=== PATIENT | female | born 1980 | race Native Hawaiian/Other Pacific Islander ===

== ENCOUNTER → 2018-01-30 12:57 | Outpatient (CLI) | payer SELFPAY ==
--- NOTE | 2018-01-30 13:10 | US_ITS ---
US transvaginal HISTORY: ITS.REASON: HEAVY BLEEDING ORDERING PHYSICIAN: Oliverio Cheung MD PATIENT AGE: 38 years Comparison: None FINDINGS: The uterus is 9 x 5 x 6.6 cm with a combined endometrial thickness 1.4 cm. No endometrial mass evident. The left ovary measures 4.3 x 2.9 cm and contains multiple small follicles as well as a 2 cm cyst with a peripheral septation. Blood flow is present. The right ovary measures 3 x 2 cm and contains small follicles. Blood flow is present No cul-de-sac fluid evident. IMPRESSION: 1. Thickened endometrium. 2. Bilateral ovarian follicles including a 2 cm left ovarian cyst
== END ==
PROVIDERS: PCP Emergency Medicine; Visit Provider Emergency Medicine
DX: N92.0 Excessive and frequent menstruation with regular cycle (principal)
CPT/HCPCS: 76830

== ENCOUNTER 2020-02-14 13:06 | Emergency (ER) | payer MEDICAID, SELFPAY ==
[2020-02-14 13:34] VITALS: BP 180/70; PULSE 73; RESP 20; TEMP 36.7; O2SAT 98; BMI 31.1
[2020-02-14 13:48] LABS: Apearance,Urine Clear (Clear); Bilirubin,Urine Negative (Negative); Blood, Urine Negative (Negative); Color,Urine Yellow (Yellow); Glucose,Urine (UA) Negative (Negative); Ketones,Urine Negative (Negative); PH,Urine 6.5 (5.0-8.5); Protein,Urine Negative (Negative); Specific Gravity, Urine 1.015 (1.005-1.030); UTC Leukocyte Esterase,Urine Negative (Negative); UTC Nitrate,Urine Negative (Negative); Urobilinogen,Urine 0.2 EU/dl (0.2)
--- NOTE | 2020-02-14 13:59 | HMH.EDUTC ---
[facility] [place] Clinical Impression: Dysuria UTI (urinary tract infection) Qualifiers: Urinary tract infection type: site unspecified Hematuria presence: without hematuria Qualified Code(s): N39.0 - Urinary tract infection, site not specified Disposition: Home, Self-Care Condition on Discharge: Good Instructions: Urinary Tract Infection Additional Instructions: Drink plenty of fluids. Take tylenol or ibuprofen for pain or fever. Take the medications as directed. Follow up with your regular doctor. GO TO THE ER FOR ANY WORSENING SYMPTOMS The pyridium will make your urine turn orange, this is an expected side effect. It will stain your clothes if it comes into contact with them. Prescriptions: Sulfamethoxazole/Trimethoprim [Bactrim DS tablet] 1 each PO BID 7 Days #14 tab Transmission Status: Received by [facility] #[id number] Fluconazole [Diflucan 150mg tab] 150 mg PO ONCE #1 tab Transmission Status: Received by [facility] #[id number] Nystatin [Nystatin Cr 100,000 Units/GM 30GM] 1 applicatio TP TID 14 Days #1 tube Transmission Status: Received by [facility] #[id number] Phenazopyridine HCl [Pyridium 200mg Tablet] 200 pow PO TID #6 tab Transmission Status: Received by [facility] #[id number] Referrals: Oliverio Cheung MD [Primary Care Provider] - Forms: Work/School Release Time of Disposition: 14:04 Medical Decision Making - Medical Records Medical records reviewed: No: I reviewed the patient's medical records. - Husam Inquiry Pt receiving controlled substance: No Vital Signs: 02/14/20 13:34 02/14/20 14:05 Temperature 98.0 F 98.0 F Temperature Source Oral Pulse Rate 73 Pulse Rate [Right Brachial] 73 Respiratory Rate 20 20 Blood Pressure 180/70 H Blood Pressure [Right Arm] 180/70 H Blood Pressure Mean [Right Arm] 106 Blood Pressure Source [Right Arm] Automatic Cuff Blood Pressure Position [Right Arm] Sitting 02 Sat by Pulse Oximetry 98 Oxygen Delivery Method Room Air - Lab Data Lab results reviewed: Yes: I reviewed the patient's lab results. Lab Results 02/14/20 13:41: Urine Color Yellow, Urine Appearance Clear, Urine pH 6.5, Ur Specific [place] 1.015, Urine Protein Negative, Urine Glucose (UA) Negative, Urine Ketones Negative, Urine Blood Negative, Urine Nitrate Negative, Urine Bilirubin Negative, Urine Urobilinogen 0.2, Ur Leukocyte Esterase Negative [facility] [place] - General Stated complaint: Possible UTI Time Seen by Provider: 02/14/20 13:40 Mode of Arrival: Ambulatory Source of Information: Patient Limitations: No Limitations Description of Symptoms (Recalled from Triage Doc. by RN): PATIENT C/O BURNING WITH URINATION, ITCHING, AND RIGHT LOWER/FLANK PAIN THAT RADIATES TO FRONT X 1 WEEK HEENT Symptoms (Recalled from RN notes): No Resp Symptoms (Recalled from RN notes): No Skin Symptoms (Recalled from RN notes): No MS Symptoms (Recalled from RN notes): No Functional Status (Recalled from RN notes): WNL - History of Present Illness Provider Complaint: She c/o low back pain, burning while urinating and feeling bad for the past 3 days. She has a history of kind of frequent uti's, but she has not had one in the past 2 years. She is taking cranberry tablets, but she states that she thinks this infection needs some antibiotics to treat it. - Related Data Previous Rx's Medication Instructions Recorded Fluconazole [Diflucan 150mg tab] 150 mg PO ONCE #1 tab 02/14/20 Nystatin [Nystatin Cr 100,000 1 applicatio TP TID 14 Days #1 tube 02/14/20 Units/GM 30GM] Phenazopyridine HCl [Pyridium 200 pow PO TID #6 tab 02/14/20 200mg Tablet] Sulfamethoxazole/Trimethoprim 1 each PO BID 7 Days #14 tab 02/14/20 [Bactrim DS tablet] Allergies Allergy/AdvReac Type Severity Reaction Status Date / Time No Known Allergies Allergy Verified 02/14/20 13:39 - Worker's Comp Is this a Worker's Comp case?: No [facility] History - Hepatiti
[2020-02-14 14:05] VITALS: BP 180/70; PULSE 73; RESP 20; TEMP 36.7; O2SAT 98
== END 2020-02-14 14:09 | disposition home or self-care (01) ==
PROVIDERS: Emergency Provider Nurse Practitioner Family; PCP Emergency Medicine
DX: N39.0 Urinary tract infection, site not specified (principal)
CPT/HCPCS: 81003; 99201

== ENCOUNTER → 2020-05-05 12:42 | Outpatient (CLI) | payer OTHER, SELFPAY ==
--- NOTE | 2020-05-05 13:05 | CA_ITS ---
APPROVED REPORT EXAM: Comprehensive 2D, Doppler, and color-flow Echocardiogram Rug Dyer: Lissy Al CRT Ht: 5 ft 1 in Wt: 172lbs BSA: 1.77 BP: 120/74 mmHg Indications: Chest Pain, Shortness of Breath, Hypertension/HDD 2D Dimensions LVOT 1.74 cm (M/F) 1.5-2.5 M-Mode Dimensions RVDd 2.59 cm (0.9-2.6) LVDd 4.78 cm (3.5-5.7) LVDs 3.22 cm (3.5-5.7) IVSd 0.94 cm (0.6-1.1) PWd 0.66 cm (0.6-1.1) EF (Teich) 60.90% FS 32.60% EDV (Teich) 106.50 mL ESV (Teich) 41.60 mL LV Diastology E/A Ratio 1.40 Mitral Valve MV A Velocity 70.00 (40-130 cm/s) Left Ventricle Left atrium is mildly enlarged, left ventricle is normal size, mild concentric left ventricular hypertrophy, visually estimated ejection fraction 55% with no regional wall motion abnormality, grade 1 diastolic dysfunction seen with tissue Doppler evidence of raise left atrial pressure. Right Ventricle Right atrium and right ventricle are mildly enlarged with normal contractility. Aortic Valve Aortic valve is thickened and calcified leaflet continue to display good mobility, there is no aortic stenosis or aortic insufficiency. Mitral Valve Mitral valve leaflets are minimally thickened, there is mild mitral regurgitation. Tricuspid Valve Tricuspid valve is grossly normal, there is mild tricuspid regurgitation, tricuspid regurgitation jet velocity is inadequate for calculation of the right ventricular systolic pressure. Pulmonic Valve Pulmonic valve is poorly visualized. Great Vessels Aortic root is normal size. Pericardium No significant pericardial effusion noted. Conclusion 1. Mild biatrial enlargement, normal left ventricular size, mild concentric left ventricular hypertrophy, visually estimated ejection fraction 55% with no regional wall motion abnormality, grade 1 diastolic dysfunction seen with tissue Doppler evidence of raise left atrial pressure. 2. Thickened and calcified aortic valve without aortic stenosis or aortic insufficiency. 3. Mildly enlarged right ventricle with normal contractility. 4. No significant pericardial effusion noted. Electronically signed by : Jose D Aly, 05/05/2020 20:34:16
--- NOTE | 2020-05-05 13:39 | US_ITS ---
PROCEDURE: US TRANSVAGINAL CLINICAL INDICATION: PELVIC AND PERINEAL PAIN COMPARISON: US TRANVAG US transvaginal from 01/30/2018 FINDINGS: UTERUS: 9cm x 7cmx 5cm with a combined endometrial thickness of 11.6mm LEFT OVARY: [id number] with a volume of 16.9ml. RIGHT OVARY: [id number] with a volume of 9.4ml. There are nabothian cysts present. Endometrial thickness is upper normal at 12 mm. In the anterior aspect of the uterus there is a 3 x 1.9 cm area of heterogeneous echogenicity consistent with a uterine fibroid in the body of the uterus anteriorly and to the right. There are multiple ovarian follicles with no dominant cyst. There is trace amount of fluid in the cul-de-sac. IMPRESSION: 1. Bulky uterus with uterine fibroid with endometrial thickness upper limits of normal 2. Multiple bilateral ovarian follicles with left ovary volume of 16 mL which may be seen with polycystic ovarian disease. Please correlate with clinical parameters Dictated by: Jameel De Dios MD 05/05/2020 19:19 Jameel De Dios MD in [place] 05/05/2020 19:19
== END ==
PROVIDERS: PCP Family Medicine; Visit Provider Family Medicine
DX: R01.1 Cardiac murmur, unspecified (principal); R10.2 Pelvic and perineal pain
CPT/HCPCS: 76830; 93306

== ENCOUNTER 2022-02-28 19:40 | Emergency (ER) | payer OTHER, SELFPAY ==
[2022-02-28 20:19] VITALS: BP 136/72; PULSE 65; RESP 18; TEMP 36.4; O2SAT 98; BMI 32.8
--- NOTE | 2022-02-28 20:30 | CT_ITS ---
PROCEDURE INFORMATION: Exam: CT Abdomen And Pelvis With Contrast Exam date and time: 02/28/2022 9:10 PM Age: 42 years old Clinical indication: Abdominal pain; Additional info: Abd pain x1 week TECHNIQUE: Imaging protocol: Computed tomography of the abdomen and pelvis with contrast. Radiation optimization: All CT scans at this facility use at least one of these dose optimization techniques: automated exposure control; mA and/or kV adjustment per patient size (includes targeted exams where dose is matched to clinical indication); or iterative reconstruction. Contrast material: ISOVUE; Contrast volume: 75 ml; Contrast route: IV; COMPARISON: US TRANSVAGINAL 05/05/2020 2:09 PM FINDINGS: Liver: Mild hepatomegaly. Gallbladder and bile ducts: Normal. Pancreas: Normal. Spleen: Normal. Adrenal glands: Normal. No mass. Kidneys and ureters: 3.6 x 3.1 x 2.6 cm heterogeneous right upper pole peripheral renal mass, concerning for renal cell carcinoma. Nonobstructive left nephrolithiasis. Stomach and bowel: Few loops of nondilated, gas and fluid-filled small bowel, which is a nonspecific finding, but can be seen with enteritis. Appendix: Appendix normal. Intraperitoneal space: Unremarkable. No free air. No significant fluid collection. Vasculature: Unremarkable. No abdominal aortic aneurysm. Lymph nodes: Unremarkable. No enlarged lymph nodes. Urinary bladder: Unremarkable as visualized. Reproductive: Lobular uterus, with heterogeneous 2.3 cm nodule in the right uterine fundus, likely fibroid. Changes of prior bilateral tubal ligation. Bones/joints: No acute abnormality. Soft tissues: Small fat containing umbilical hernia. Small fat containing umbilical hernia. IMPRESSION: 1. 3.6 x 3.1 x 2.6 cm heterogeneous right upper pole peripheral renal mass, concerning for renal cell carcinoma. Recommend further evaluation. 2. Few loops of nondilated, gas and fluid-filled small bowel, which is a nonspecific finding, but can be seen with enteritis.
--- NOTE | 2022-02-28 20:31 | HMH.EDNVD ---
ED Disposition Clinical Impression: Renal mass, right Disposition: Home, Self-Care Condition on Discharge: Good Instructions: DI for Acute Abdominal Pain Additional Instructions: call pcp for follow up and renal mass will need urology Referrals: Keisha Forrest [Primary Care Provider] - Saqib Linda MD [Staff Physician] - - Critical Care Critical Care Time: No Attestation: On 02/28/22, the high probability of a clinically significant, sudden or life threatening deterioration of the following system(s) required my full and direct attention, intervention and personal management. The time I documented below is in addition to time spent performing reported procedures but includes the following listed in this critical care notation. Medical Decision Making - Medical Records Medical records reviewed: Yes: I reviewed the patient's medical records. - Husam Inquiry Pt receiving controlled substance: No Vital Signs: 02/28/22 20:19 02/28/22 21:23 Temperature 97.6 F 98.1 F Temperature Source Oral Oral Pulse Rate 65 Pulse Rate [Left Radial] 65 Respiratory Rate 18 16 Blood Pressure 140/79 Blood Pressure [Right Arm] 136/72 Blood Pressure Mean [Right Arm] 93 Blood Pressure Source Automatic Cuff Blood Pressure Source [Right Arm] Automatic Cuff Blood Pressure Position Sitting 02 Sat by Pulse Oximetry 98 100 Oxygen Delivery Method Room Air Room Air - Lab Data Lab results reviewed: Yes: I reviewed the patient's lab results. Lab Results 02/28/22 20:40: Urine Color Yellow, Urine Appearance Clear, Urine pH 6.0, Ur Specific [place] 1.010, Urine Protein Negative, Urine Glucose (UA) Negative, Urine Ketones Negative, Urine Blood Negative, Urine Nitrate Negative, Urine Bilirubin Negative, Urine Urobilinogen 0.2, Ur Leukocyte Esterase Negative, Ur Squamous Epith Cells 3-5, Urine Bacteria Trace 02/28/22 20:40: Urine HCG, Qual Negative 02/28/22 20:46: WBC 5.7, RBC 4.31, Hgb 12.6, Hct 37.6, MCV 87.4, MCH 29.3, MCHC 33.5, RDW 13.4, Plt Count 338, MPV 7.7, Neut % (Auto) 42.3, Lymph % (Auto) 46.5, Centre % (Auto) 6.3, Eos % (Auto) 3.4, Baso % (Auto) 1.5, Neut # (Auto) 2.4, Lymph # (Auto) 2.6, Centre # (Auto) 0.4, Eos # (Auto) 0.2, Baso # (Auto) 0.1, ESR 14 02/28/22 20:46: Sodium 138, Potassium 3.2 L, Chloride 98, Carbon Dioxide 32 H, Anion Gap 11.2, BUN 16, Creatinine 0.70, Estimated Creat Clear 133, Estimated GFR 93, Est GFR ( Amer) 112, Glucose 87, Calcium 9.1, Total Bilirubin < 0.1 L, AST 36, ALT 31, Alkaline Phosphatase 108, C-Reactive Protein 3.1, Total Protein 7.7, Albumin 4.5, Globulin 3.2, Albumin/Globulin Ratio 1.4, Amylase 74, Lipase 63 02/28/22 20:46: Total Bilirubin 0.3, Direct Bilirubin 0.0, Conjugated Bilirubin 0.0, Indirect Bilirubin 0.3, Unconjugated Bilirubin 0.0, AST 37 H, ALT 31, Alkaline Phosphatase 106, Total Protein 7.6, Albumin 4.4 02/28/22 20:46: Lactate 0.9 Result diagrams: 02/28/22 20:46 02/28/22 20:46 Orders (Tests/Meds): ED MEDICATIONS Generic Name Dose Route Start Last Admin Trade Name Freq PRN Reason Stop Dose Admin Sodium Chloride 1,000 mls @ 999 mls/hr 02/28/22 20:30 02/28/22 20:53 Sod Chlor 0.9% 1000ml Bag IV 02/28/22 21:30 999 mls/hr .Q1H1M SHIRA Administration Sodium Chloride 8 ml 02/28/22 20:23 Sodium Chloride 0.9% 10ml Vial IV 03/30/22 20:22 NEEDED PRN dilute pepcid Discontinued Medications Generic Name Dose Route Start Last Admin Trade Name Freq PRN Reason Stop Dose Admin Acetaminophen/Codeine Phosphate 1 packet 02/28/22 23:21 Acetaminophen 300mg W/Codeine 30mg Take Home Pack (6) PO 02/28/22 23:22 ONCE ONE Famotidine 20 mg 02/28/22 20:23 02/28/22 20:54 Famotidine 20mg/2ml Vial IV 02/28/22 20:24 20 mg ONCE ONE Administration Iopamidol 75 ml 02/28/22 21:18 02/28/22 21:18 Iopamidol-370 (76%);100ml Bottle IV 02/28/22 21:19 75 ml ONCE ONE Administration Metoclopramide HCl 10 mg 02/28/22 20:23 02/28/22 20:54
[2022-02-28 20:45] LABS: Microscopic, Urine URINE MICROSCOPIC (MICROSCOPIC)
[2022-02-28 20:46] LABS: Appearance,Urine CLEAR (Clear); Bilirubin,Urine Negative (Negative); Blood, Urine Negative (Negative); Color,Urine YELLOW (Yellow); Glucose,Urine (UA) Negative (Negative); Ketones,Urine Negative (Negative); Leukocyte Esterase,Urine Negative (Negative); Nitrate,Urine Negative (Negative); Protein,Urine Negative (Negative); Urobilinogen,Urine 0.2 EU/dl (0.2)
[2022-02-28 20:47] LABS: Urine Pregnancy, HCG Qual. Negative (Negative)
[2022-02-28 21:02] LABS: Basophils # 0.1 K/mm3 (0-0.2); Basophils % 1.5 % (0.1-2.0); Eosinophils # 0.2 K/mm3 (0.0-0.4); Eosinophils % 3.4 % (0.1-12.0); Hematocrit 37.6 % (37.0-47.0); Hemoglobin 12.6 g/dL (12.2-16.2); Lymphocytes # 2.6 K/mm3 (0.7-4.5); Lymphocytes % 46.5 % (10-50); Mean Corpuscular HGB Conc 33.5 g/dL (31.8-35.4); Mean Corpuscular Hemoglobin 29.3 pg (27.0-31.2); Mean Corpuscular Volume 87.4 fl (81-99); Mean Platelet Volume 7.7 fl (7.4-10.4); Monocytes # 0.4 K/mm3 (0.1-1.0); Monocytes % 6.3 % (1.7-9.3); Neutrophils # 2.4 K/mm3 (1.8-7.8); Neutrophils % 42.3 % (37.0-80.0); Platelet Count 338 K/mm3 (142-424); Red Blood Count 4.31 M/mm3 (4.20-5.40); Red Cell Distribution Width 13.4 % (11.5-17.5); White Blood Count 5.7 K/mm3 (4.8-10.8)
[2022-02-28 21:07] LABS: Alanine Aminotransferase 31 U/L (12-78); Albumin Level 4.4 g/dl (3.5-5.0); Alkaline Phosphatase 106 U/L (38-126); Aspartate Amino Transferase 37 U/L (14-36); Total Protein,Serum 7.6 g/dl (6.3-8.2)
[2022-02-28 21:08] LABS: Alanine Aminotransferase 31 U/L (12-78); Albumin Level 4.5 g/dl (3.5-5.0); Albumin/Globulin Ratio 1.4 (1.1-1.8); Alkaline Phosphatase 108 U/L (38-126); Amylase 74 U/L (30-110); Anion Gap 11.2 mEq/L (5-15); Aspartate Amino Transferase 36 U/L (14-36); Blood Urea Nitrogen 16 mg/dl (7-17); Calcium 9.1 mg/dl (8.4-10.2); Carbon Dioxide 32 mmol/L (22.0-30.0); Chloride 98 mmol/L (98-107); Creatinine Clearance Estimated 133 mL/min (50-200); Estimated Glomerular Filt Rate 93 ml/min (>60); GFR (African American) 112 ML/MIN (>60); Globulin 3.2 g/dL (1.3-3.2); Glucose 87 mg/dl (74-100); Lipase 63 U/L (23-300); Potassium 3.2 mmoL/L (3.5-5.1); Sodium 138 mmol/L (136-145); Total Protein,Serum 7.7 g/dl (6.3-8.2)
[2022-02-28 21:14] LABS: C-Reactive Protein 3.1 mg/L (0-4)
[2022-02-28 21:15] LABS: Lactic Acid 0.9 mmol/L (0.7-2.1)
[2022-02-28 21:16] LABS: Bilirubin,Total < 0.1 mg/dl (0.2-1.3)
[2022-02-28 21:23] VITALS: BP 140/79; PULSE 65; RESP 16; TEMP 36.7; O2SAT 100
[2022-02-28 21:23] LABS: Bacteria,Urine Trace /lpf
--- NOTE | 2022-02-28 21:25 | PC.NURSE ---
KEMI Lorenzo speaking with Dr. Calderon at this time
[2022-02-28 21:31] LABS: Bilirubin,Indirect 0.3 mg/dL (0.0-0.9); Bilirubin,Total 0.3 mg/dl (0.2-1.3)
[2022-02-28 21:54] LABS: Erythrocyte Sedimentation Rate 14 mm/hr (0-20)
[2022-02-28 23:32] VITALS: BP 139/78; PULSE 61; RESP 16; TEMP 36.7; O2SAT 99
== END 2022-02-28 23:37 | disposition home or self-care (01) ==
PROVIDERS: Emergency Provider Emergency Medicine; PCP Family Medicine
DX: N28.89 Other specified disorders of kidney and ureter (principal); D50.9 Iron deficiency anemia, unspecified
CPT/HCPCS: 74177; 80053; 80076; 81001; 81025; 82150; 83605; 83690; 85025; 85651; 86140; 87040; 96365; 96375; 99284; J2405; Q9967

== ENCOUNTER → 2022-03-08 11:52 | Outpatient (CLI) | payer OTHER, SELFPAY ==
--- NOTE | 2022-03-08 11:56 | CA_ITS ---
APPROVED REPORT EXAM: Comprehensive 2D, Doppler, and color-flow Echocardiogram Associate Principal: Lissy Al CRT Ht: 5 ft 1 in Wt: 176lbs BSA: 1.79 BP: 140/79 mmHg Indications: Murmur, Cardiomyopathy, Hypertension/HDD 2D Dimensions LVOT 1.65 cm (M/F) 1.5-2.5 M-Mode Dimensions RVDd 1.88 cm (0.9-2.6) LA Diam 2.88 cm (1.9-4.0) LVDd 4.26 cm (3.5-5.7) Ao Diam 3.53 cm (2.0-3.7) LVDs 2.75 cm (3.5-5.7) IVSd 1.68 cm (0.6-1.1) PWd 0.57 cm (0.6-1.1) EF (Teich) 65.20% FS 35.40% EDV (Teich) 81.30 mL TAPSE 2.98 (<1.7) ESV (Teich) 28.30 mL LV Diastology E Decel Time 160.00 (160-240 msec) E/A Ratio 1.45 MED E' 7.80 (< 7 cm/sec) MED A' 10.40 cm/s E'/MED E' Ratio 12.23 (>14) LAT E' 12.20 (<10 cm/sec) LAT A' 10.80 cm/s E/LAT E' Ratio 7.82 (>14) Aortic Valve AO Peak GR. 8.10 mmHg Mitral Valve MV A Velocity 66.00 (40-130 cm/s) E/A Ratio 1.45 MV Decel. Time 160.00 (160-240 ms) Pulmonary Valve PV Peak Velocity 127.00 (50-150 cm/s) Tricuspid Valve TR P. Velocity 289.00 cm/s RAP Estimate 10.00 mmHg RVSP 43.30 mmHg Left Ventricle Left atrium normal size, left ventricle is normal size mild concentric left ventricular hypertrophy, estimated ejection fraction 55% with no regional wall motion abnormality, diastolic parameters are within normal range. Right Ventricle Right atrium and right ventricle are normal size and contractility. Aortic Valve Aortic valve is minimally thickened calcified without aortic stenosis or aortic insufficiency. Mitral Valve Mitral valve grossly normal, there is trace mitral regurgitation. Tricuspid Valve Tricuspid grossly normal, there is trace tricuspid regurgitation, tricuspid regurgitation jet velocity is inadequate for calculation of the right ventricular systolic pressure. Pulmonic Valve Pulmonic valve is poorly visualized. Great Vessels Aortic root is normal size. Inferior vena cava is poorly visualized. Pericardium No significant pericardial effusion noted. Conclusion 1. Normal left ventricular size, preserved left ventricular systolic function, estimated ejection fraction 55% with no regional wall diastolic parameters are within normal range. 2. Trace mitral and tricuspid regurgitation. 3. No significant pericardial effusion noted. 4. Inferior vena cava is poorly visualized. Electronically signed by : Jose D Aly MD 03/08/2022 18:55:37
== END ==
PROVIDERS: PCP Family Medicine; Visit Provider Family Medicine
DX: I42.8 Other cardiomyopathies (principal)
CPT/HCPCS: 93306

== ENCOUNTER → 2022-04-04 09:37 | Outpatient (CLI) | payer OTHER, SELFPAY ==
--- NOTE | 2022-04-04 10:12 | NM_ITS ---
FINAL REPORT CLINICAL HISTORY: RUQ pain 11:15AM 7.38 MCI TC CHOLETEC ENSURE FINDINGS: Sequential anterior projection images of the abdomen were obtained after the intravenous injection of 7.38 mCi technetium 99m Choletec. There is normal uptake of radiotracer by the liver. The bile ducts are visualized by 30 minutes. Gallbladder activity is seen by 60 minutes. Bowel activity is noted by 60 minutes. After 1 hour, ensure was administered for calculation of gallbladder ejection fraction. The gallbladder ejection fraction is 44 %, which is depressed. IMPRESSION: No evidence of cystic duct or bile duct obstruction. Depressed gallbladder ejection fraction of 44 %. Reviewed, Interpreted and Dictated by Cruz Gallegos MD Transcribed by Shayla Borges Authenticated and [facility]
== END ==
PROVIDERS: PCP Family Medicine; Visit Provider Surgery
DX: R10.11 Right upper quadrant pain (principal)
CPT/HCPCS: 78226; A9537

== ENCOUNTER 2023-12-20 09:05 | Outpatient (CLI) | payer SELFPAY ==
--- NOTE | 2023-12-20 09:06 | US_ITS ---
FINAL REPORT CLINICAL HISTORY: RUQ pain COMPARISON: None FINDINGS: Sonographic images of the right upper quadrant were obtained. The pancreas is partially obscured.The liver has an unremarkable appearance.The gallbladder appears normal without evidence of gallstones.There is no evidence of biliary ductal dilatation.The common duct measures 4mm. The right kidney is surgically absent. IMPRESSION: Unremarkable right upper quadrant ultrasound. Right kidney surgically absent. Reviewed, Interpreted and Dictated by Bandar Lancaster III, MD Transcribed by Erin Cano Authenticated and [facility]
== END 2023-12-20 23:59 | disposition home or self-care (01) ==
LOC: RAD 09:06
PROVIDERS: PCP Family Medicine; Visit Provider Surgery
DX: R10.11 Right upper quadrant pain (principal)
CPT/HCPCS: 76705

== ENCOUNTER 2024-01-17 10:19 | Outpatient (CLI) | payer SELFPAY ==
--- NOTE | 2024-01-17 10:20 | NM_ITS ---
FINAL REPORT CLINICAL HISTORY: RUQ pain 10:30am 8.28 mci tc choletec 1.5 mcg cck no pain with cck COMPARISON: None FINDINGS: Sequential anterior projection images of the abdomen were obtained after the intravenous injection of 8.28 mCi technetium 99m Choletec. There is normal uptake of radiotracer by the liver. The bile ducts and gallbladder are visualized by 10 minutes. Bowel activity is noted by 15 minutes. After 1 hour, 1.5 ?g of CCK was injected intravenously for calculation of gallbladder ejection fraction. The gallbladder ejection fraction is 68 %, which is within normal limits. IMPRESSION: No evidence of cystic duct or bile duct obstruction. Normal gallbladder ejection fraction of 68 %. Reviewed, Interpreted and Dictated by Bandar Lancaster III, MD Transcribed by Erin Cano Authenticated and [facility]
[2024-01-17] MEDS: SODIUM CHLORIDE 0.9% 10ML SYR (RAD ONLY) 10 ML IV (10:30)
[2024-01-17] MEDS: SINCALIDE 1.5 MCG in 0.9 % SODIUM CHLORIDE 50 ML 100 MCG IV (11:30)
[2024-01-17] MEDS: ISOTOPE CHOLETECH;1 DOSE (UP TO 15 MCI) IV (11:59)
== END 2024-01-17 23:59 | disposition home or self-care (01) ==
LOC: RAD 10:20
PROVIDERS: Visit Provider Surgery
DX: R10.11 Right upper quadrant pain (principal)
CPT/HCPCS: 78227; A9537; J2805